=== PATIENT | male | born 1965 | race Caucasian/White ===

== ENCOUNTER 2020-04-04 08:27 | Observation (INO) ==
[2020-04-04 09:11] LABS: Basophils # 0.1 K/mcL (0.0-0.2); Basophils % 0.6 %; Eosinophils # 0.3 K/mcL (0.0-0.6); Eosinophils % 3.6 %; Hematocrit 42.3 % (37.5-50.1); Hemoglobin 13.5 g/dL (12.9-16.9); Immature Granulocytes % 0.4 % (0-4); Lymphocytes # 2.9 K/mcL (0.6-4.6); Lymphocytes % 35.3 %; Mean Corpuscular HGB Conc 31.9 g/dL (31.6-35.5); Mean Corpuscular Hemoglobin 28.5 pg (28.0-33.3); Mean Corpuscular Volume 89.4 fL (83.0-100.0); Mean Platelet Volume 9.5 fL (9.4-12.4); Monocytes # 0.6 K/mcL (0.0-1.3); Monocytes % 7.9 %; Neutrophils # 4.2 K/mcL (1.6-8.9); Platelet Count 279 K/mcL (140-400); Red Blood Count 4.73 M/mcL (4.19-5.50); Red Cell Distribution Width 13.8 % (11.5-14.5); Segmented Neutrophils % 52.2 %; White Blood Count 8.1 K/mcL (4.3-11.1)
[2020-04-04] MEDS ORDERED: Aspirin 81 MG TAB.CHEW PO ONE (09:18)
[2020-04-04 09:32] LABS: BUN/Creatinine Ratio 26 (6-26); Blood Urea Nitrogen 24 mg/dL (6-20); Calcium 10.7 mg/dL (8.6-10.3); Carbon Dioxide 27 mEq/L (23-29); Chloride 101 mEq/L (98-107); Glucose 160 mg/dL (70-105); Osmolality,Calculated 291 (280-300); Potassium 4.2 mEq/L (3.5-5.1); Sodium 137 mEq/L (136-145); eGFR For African Americans > 60 (> 60); eGFR For Non-African Americans > 60 (> 60)
[2020-04-04 09:33] LABS: Troponin I < 0.03 ng/mL (< 0.04)
[2020-04-04] MEDS ORDERED: Naloxone 0.4 MG/ML INJ IVP PRN (10:27)
[2020-04-05 04:53] LABS: Basophils % 0.5 %; Eosinophils # 0.3 K/mcL (0.0-0.6); Eosinophils % 3.7 %; Immature Granulocytes % 0.2 % (0-4); Lymphocytes # 2.6 K/mcL (0.6-4.6); Lymphocytes % 31.5 %; Mean Corpuscular HGB Conc 32.5 g/dL (31.6-35.5); Mean Corpuscular Hemoglobin 28.6 pg (28.0-33.3); Mean Corpuscular Volume 88.1 fL (83.0-100.0); Mean Platelet Volume 9.5 fL (9.4-12.4); Monocytes # 0.7 K/mcL (0.0-1.3); Monocytes % 7.8 %; Neutrophils # 4.7 K/mcL (1.6-8.9); Platelet Count 230 K/mcL (140-400); Red Blood Count 4.54 M/mcL (4.19-5.50); Red Cell Distribution Width 13.8 % (11.5-14.5); Segmented Neutrophils % 56.3 %; White Blood Count 8.4 K/mcL (4.3-11.1)
[2020-04-05 05:12] LABS: BUN/Creatinine Ratio 31 (6-26); Blood Urea Nitrogen 29 mg/dL (6-20); Calcium 10.3 mg/dL (8.6-10.3); Carbon Dioxide 26 mEq/L (23-29); Chloride 101 mEq/L (98-107); Chol/HDL Ratio 4.4 (0-4.9); Cholesterol 158 mg/dL (< 200); Glucose 197 mg/dL (70-105); HDL Cholesterol 36 mg/dL (40-59); LDL Cholesterol,Calculated 53 mg/dL (< 100); Osmolality,Calculated 293 (280-300); Potassium 4.2 mEq/L (3.5-5.1); Sodium 136 mEq/L (136-145); Triglycerides 347 mg/dL (< 150); eGFR For African Americans > 60 (> 60); eGFR For Non-African Americans > 60 (> 60)
[2020-04-05] MEDS ORDERED: Regadenoson 0.4 MG/5 ML SYRINGE IVP ONE (06:15)
[2020-04-05] MEDS ORDERED: Cholecalciferol (D-3) 1,000 UNIT (25MCG) TABLET PO SCH (09:00)
[2020-04-05] MEDS ORDERED: Aspirin Enteric Coated 81 MG Tablet PO SCH (09:00)
[2020-04-05] MEDS ORDERED: NON-FORMULARY MEDICATION 1 EACH EACH (Omega-3/Dha/Epa/Fish Oil [Fish Oil 1,000 Mg Softgel] PO SCH (09:00)
[2020-04-05] MEDS ORDERED: allopurinoL 300 MG TABLET PO SCH (09:00)
[2020-04-05] MEDS ORDERED: Multivit/Ca/Min/Fe/FA 1 TAB TABLET PO SCH (09:00)
[2020-04-05 10:23] LABS: Estimated Average Glucose 151 mg/dl; Hemoglobin A1C 6.9 %
[2020-04-05 11:15] VITALS: BP 115/75
== END 2020-04-05 15:17 | disposition home or self-care (01) ==
LOC: 3BNU 08:27 → EMEROOARM 08:27 → SUATTDRO 10:31 → 3BNU 11:15
PROVIDERS: ADMIT Internal Medicine; ATTEND Registered Nurse